=== PATIENT | female | born 2000 | race African-American/Black ===

== ENCOUNTER 2019-07-01 11:00 | Emergency (ER) | payer OTHER ==
[2019-07-01 11:14] VITALS: TEMP 97.8
[2019-07-01] MEDS ORDERED: KETOROLAC 30 MG/ML 1 ML VIAL IM STA (11:38)
--- NOTE | 2019-07-01 11:44 | ED ---
Chest Pain HPI - General Chief Complaint: Chest Pain Stated Complaint: Chest pain/tightness, abd pain Time Seen by Provider: 07/01/19 11:16 Source: patient, RN notes reviewed, old records reviewed Mode of arrival: ambulatory Limitations: no limitations - History of Present Illness Initial Comments: 18-year-old female presents today for concern for left-sided chest pain, worse with taking a deep breath or moving her arms and reproducible palpation. Symptoms started at 7 PM yesterday while she was at work. She denies any cough or significant congestion this time. Denies any previous cardiac history. Denies leg swelling, travel history, denies chance of . Patient denies any abdominal pain. Patient denies any recent fever, chills, shortness of breath, back pain, abdominal pain, nausea vomiting, numbness or tingling, dysuria or hematuria, constipation or diarrhea, headaches or visual changes, or any other current symptoms MD Complaint: chest pain - Related Data Previous Rx's Medication Instructions Recorded Ibuprofen [Motrin] 600 mg PO Q6HR PRN #20 tab 06/08/17 Ibuprofen [Motrin] 600 mg PO Q8HR PRN #20 tab 07/01/19 methylPREDNISolone Dose Pack 4 mg PO DIRECTED #21 package 07/01/19 [Medrol Dose Pack] Allergies Allergy/AdvReac Type Severity Reaction Status Date / Time No Known Allergies Allergy Verified 07/01/19 11:14 Review of Systems ROS Statement: Those systems with pertinent positive or pertinent negative responses have been documented in the HPI. ROS Other: All systems not noted in ROS Statement are negative. EKG Findings - EKG Comments: EKG Findings:: EKG performed at 11:49 AM shows sinus bradycardia, rightward axis. Borderline EKG. Ventricular rate 59 bpm. Verbal is 114 ms. QRS duration is 80 ms. QT QTc is 400/11/11/1995 most seconds. Past Medical History Past Medical History: No Reported History History of Any Multi-Drug Resistant Organisms: None Reported Past Surgical History: No Surgical Hx Reported Past Psychological History: No Psychological Hx Reported Smoking Status: Never smoker Past Alcohol Use History: None Reported Past Drug Use History: None Reported General Exam - General Exam Comments Initial Comments: Well-appearing 18-year-old female. No acute distress. Limitations: no limitations General appearance: alert, in no apparent distress Head exam: Present: atraumatic, normocephalic, normal inspection Eye exam: Present: normal appearance, PERRL, EOMI. Absent: scleral icterus, conjunctival injection, periorbital swelling ENT exam: Present: normal exam, mucous membranes moist Neck exam: Present: normal inspection. Absent: tenderness, meningismus, lymphadenopathy Respiratory exam: Present: normal lung sounds bilaterally, other (Is tender to palpation over the left chest wall.). Absent: respiratory distress, wheezes, rales, rhonchi, stridor Cardiovascular Exam: Present: regular rate, normal rhythm, normal heart sounds. Absent: systolic murmur, diastolic murmur, rubs, gallop, clicks GI/Abdominal exam: Present: soft, normal bowel sounds. Absent: distended, tenderness, guarding, rebound, rigid Back exam: Present: normal inspection Neurological exam: Present: alert, oriented X3, CN II-XII intact Psychiatric exam: Present: normal affect, normal mood Course Vital Signs 07/01/19 11:12 Temperature 97.8 F Pulse Rate 64 Respiratory 20 Rate Blood Pressure 118/74 O2 Sat by Pulse 99 Oximetry Chest Pain MDM - MDM 1-year-old female presents today for evaluation for concern for left sided chest pain, reproducible with palpation and movement and taking a breath. Lung sounds are clear. Vital signs are stable. EKG was reviewed and negative for any acute process. Chest x-ray is negative for any acute cardio pulmonary process. Patient is given IM Toradol for pain relief. On reevaluation she is resting comfortably bed and appears in distress. Discussed likely muscular skeletal origin or costochondritis. Discussed using intense image her medication for pain and close follow-up with her primary care doctor. All questions were answered. Disposition Clinical Impression: Chest wall pain Disposition: HOME SELF-CARE Condition: Good Instructions (If sedation given, give patient instructions): Costochondritis (ED) Additional Instructions: Please use medication as discussed. Please follow up with family doctor if symptoms have not improved over the next two days. Please return to the emergency room if your symptoms increase or worsen or for any other concerns. Prescriptions: methylPREDNISolone Dose Pack [Medrol Dose Pack] 4 mg PO DIRECTED #21 package Ibuprofen [Motrin] 600 mg PO Q8HR PRN #20 tab PRN Reason: Pain Is patient prescribed a controlled substance at d/c from ED?: No Referrals: Michael Benitez MD [Primary Care Provider] - 1-2 days Time of Disposition: 13:11
--- NOTE | 2019-07-01 12:27 | XR ---
EXAMINATION TYPE: XR chest 2V DATE OF EXAM: 07/01/2019 COMPARISON: NONE HISTORY: Chest pain TECHNIQUE: Frontal and lateral views of the chest are obtained. FINDINGS: There is no focal air space opacity. No evidence for pneumothorax. No pleural effusion. The cardiac silhouette size is within normal limits. The osseous structures are grossly intact. IMPRESSION: 1. No acute cardiopulmonary process.
[2019-07-01 13:21] VITALS: BP 111/71; PULSE 67; RESP 16
== END 2019-07-01 13:20 | disposition home or self-care (01) ==
LOC: EC 11:00
DX: R07.89 Other chest pain (principal)
CPT/HCPCS: 93005; 71046; 99285; 96372; J1885

== ENCOUNTER 2019-07-17 23:46 | Emergency (ER) | payer OTHER ==
[2019-07-18 00:05] VITALS: TEMP 98.7
[2019-07-18] MEDS ORDERED: SODIUM CHLORIDE 0.9% 1,000 ML IV STA (00:18)
[2019-07-18] MEDS ORDERED: DICYCLOMINE 10 MG/ML 2 ML AMP IM STA (00:18)
[2019-07-18] MEDS ORDERED: PANTOPRAZOLE 40 MG/10 ML VIAL IVP STA (00:18)
[2019-07-18] MEDS ORDERED: KETOROLAC 30 MG/ML 1 ML VIAL IVP STA (00:18)
--- NOTE | 2019-07-18 00:31 | ED ---
Abdominal Pain HPI - General Chief Complaint: Abdominal Pain Stated Complaint: Abd Pain/Headache Time Seen by Provider: 07/18/19 00:00 Source: patient Mode of arrival: ambulatory Limitations: no limitations - History of Present Illness Initial Comments: Patient is a 18-year-old female presenting to emergency Department with a chief complaint of abdominal pain. She states the abdominal pain has been going on and off for about 2 weeks and appears to be exacerbated after eating meals. She reports occasional nausea but denies any vomiting constipation diarrhea. She reports the pain is mostly located in the epigastric and right upper quadrant region. She does report shaking after on the onset of pain. She reports the pain is dull and about a 6. She denies any increased urgency or frequency or dysuria. Denies possibility for . Patient not considered for STDs. Patient denies hematuria, hematochezia or melena. Patient denies taking medication to alleviate the symptoms. - Related Data Previous Rx's Medication Instructions Recorded Ibuprofen [Motrin] 600 mg PO Q6HR PRN #20 tab 06/08/17 Ibuprofen [Motrin] 600 mg PO Q8HR PRN #20 tab 07/01/19 methylPREDNISolone Dose Pack 4 mg PO DIRECTED #21 package 07/01/19 [Medrol Dose Pack] Allergies Allergy/AdvReac Type Severity Reaction Status Date / Time No Known Allergies Allergy Verified 07/18/19 00:03 Review of Systems ROS Statement: Those systems with pertinent positive or pertinent negative responses have been documented in the HPI. ROS Other: All systems not noted in ROS Statement are negative. Past Medical History Past Medical History: No Reported History History of Any Multi-Drug Resistant Organisms: None Reported Past Surgical History: No Surgical Hx Reported Past Psychological History: No Psychological Hx Reported Smoking Status: Never smoker Past Alcohol Use History: None Reported Past Drug Use History: Marijuana General Exam Limitations: no limitations General appearance: alert, in no apparent distress Head exam: Present: atraumatic, normocephalic, normal inspection Eye exam: Present: normal appearance Pupils: Present: normal accommodation ENT exam: Present: normal exam, mucous membranes moist Neck exam: Present: normal inspection, full ROM Respiratory exam: Present: normal lung sounds bilaterally Cardiovascular Exam: Present: regular rate, normal rhythm, normal heart sounds GI/Abdominal exam: Present: soft, tenderness. Absent: distended Course Vital Signs 07/18/19 00:03 Temperature 98.7 F Pulse Rate 81 Respiratory 18 Rate Blood Pressure 124/90 O2 Sat by Pulse 99 Oximetry Medical Decision Making - Medical Decision Making Patient is a 18-year-old female presenting to the emergency room with a chief complaint of abdominal pain is about one for the past 2 weeks intermittently. Patient appears to be post prandial. Exam shows positive Jason sign with right upper quadrant epigastric tenderness palpation. Rest of physical examination is unremarkable. CBC CMP and UA are unremarkable. Right upper quadrant ultrasound shows no signs of gallstones or underlying gallbladder pathology. Patient given fluids, analgesia, antiemetics Protonix and Bentyl. I suspect the pain is related to her gallbladder because she appears to have pain postprandially especially after eating a fatty meal. Patient advised to follow-up with a general surgeon. Patient advised to avoid eating fatty foods. Patient vised alternate between Tylenol and ibuprofen for pain control. Strict return parameters were thoroughly discussed with patient was understanding and agreeable. Case discussed with physician. - Lab Data Result diagrams: 07/18/19 00:32 07/18/19 00:32 Lab Results 07/18/19 07/18/19 07/18/19 Range/Units 00:32 00:32 00:32 WBC 6.2 (4.0-11.0) k/uL RBC 4.31 (3.80-5.40) m/uL Hgb 12.8 (11.4-16.0) gm/dL Hct 37.4 (34.0-46.0) % MCV 86.6 (80.0-100.0) fL MCH 29.7 (25.0-35.0) pg MCHC 34.3 (31.0-37.0) g/dL RDW 12.6 (11.5-15.5) % Plt Count 213 (150-450) k/uL Neutrophils % 40 % Lymphocytes % 47 % Monocytes % 6 % Eosinophils % 2 % Basophils % 0 % Neutrophils # 2.5 (1.3-7.7) k/uL Lymphocytes # 2.9 (1.0-4.8) k/uL Monocytes # 0.4 (0-1.0) k/uL Eosinophils # 0.1 (0-0.7) k/uL Basophils # 0.0 (0-0.2) k/uL Sodium 140 (137-145) mmol/L Potassium 3.9 (3.5-5.1) mmol/L Chloride 107 (98-107) mmol/L Carbon Dioxide 26 (22-30) mmol/L Anion Gap 7 mmol/L BUN 14 (7-17) mg/dL Creatinine 0.74 (0.52-1.04) mg/dL Est GFR (CKD-EPI)AfAm >90 (>60 ml/min/1.73 sqM) Est GFR (CKD-EPI)NonAf >90 (>60 ml/min/1.73 sqM) Glucose 94 (74-99) mg/dL Calcium 9.6 (8.4-10.2) mg/dL Total Bilirubin 0.4 (0.2-1.3) mg/dL AST 24 (14-36) U/L ALT 18 (9-52) U/L Alkaline Phosphatase 64 (38-126) U/L Total Protein 7.4 (6.3-8.2) g/dL Albumin 4.1 (3.5-5.0) g/dL Amylase 111 H (30-110) U/L Lipase 132 (23-300) U/L Urine Color Light Yellow Urine Appearance Clear (Clear) Urine pH 6.5 (5.0-8.0) Ur Specific [place] 1.019 (1.001-1.035) Urine Protein Negative (Negative) Urine Glucose (UA) Negative (Negative) Urine Ketones Negative (Negative) Urine Blood Small H (Negative) Urine Nitrite Negative (Negative) Urine Bilirubin Negative (Negative) Urine Urobilinogen <2.0 (<2.0) mg/dL Ur Leukocyte Esterase Small H (Negative) Urine RBC 3 (0-5) /hpf Urine WBC 3 (0-5) /hpf Ur Squamous Epith Cells 2 (0-4) /hpf Urine Mucus Rare H (None) /hpf Disposition Clinical Impression: Right upper quadrant abdominal pain, Colicky pain Disposition: HOME SELF-CARE Condition: Stable Instructions (If sedation given, give patient instructions): Abdominal Pain (ED) Additional Instructions: Please follow with general surgery. Please return to emergency department if symptoms worsen. Alternate between Tylenol and ibuprofen pain control. Avoid eating fatty foods. Is patient prescribed a controlled substance at d/c from ED?: No Referrals: Michael Benitez MD [Primary Care Provider] - 1-2 days Time of Disposition: 02:09
[2019-07-18 00:45] LABS: Appearance,Urine Clear (Clear); Basophils % (A) 0 %; Bilirubin,Urine Negative (Negative); Blood,Urine Small (Negative); Color,Urine Light Yellow; Eosinophils # (A) 0.1 k/uL (0-0.7); Eosinophils % (A) 2 %; Glucose,Urine (UA) Negative (Negative); HCT 37.4 % (34.0-46.0); HGB 12.8 gm/dL (11.4-16.0); Ketones,Urine Negative (Negative); Leukocyte Esterase,Urine Small (Negative); Lymphocytes # (A) 2.9 k/uL (1.0-4.8); Lymphocytes % (A) 47 %; MCH 29.7 pg (25.0-35.0); MCHC 34.3 g/dL (31.0-37.0); MCV 86.6 fL (80.0-100.0); Mean Platelet Volume 6.9; Monocytes # (A) 0.4 k/uL (0-1.0); Monocytes % (A) 6 %; Mucus,Urine Rare /hpf; Neutrophils # (A) 2.5 k/uL (1.3-7.7); Neutrophils % (A) 40 %; Nitrite,Urine Negative (Negative); PH, Urine 6.5 (5.0-8.0); Platelet Count 213 k/uL (150-450); Protein,Urine Negative (Negative); RBC 4.31 m/uL (3.80-5.40); RBC,Urine 3 /hpf (0-5); RDW 12.6 % (11.5-15.5); Specific Gravity,Urine 1.019 (1.001-1.035); Squamous Epithelial Cell,Urine 2 /hpf (0-4); Urobilinogen,Urine <2.0 mg/dL (<2.0); WBC 6.2 k/uL (4.0-11.0); WBC,Urine 3 /hpf (0-5)
[2019-07-18 01:02] LABS: ALT 18 U/L (9-52); AST 24 U/L (14-36); African American GFR (CKD) >90 (>60 ml/min/1.73 sqM); Albumin 4.1 g/dL (3.5-5.0); Alkaline Phosphatase 64 U/L (38-126); Amylase 111 U/L (30-110); Anion Gap 7 mmol/L; Blood Urea Nitrogen 14 mg/dL (7-17); Calcium 9.6 mg/dL (8.4-10.2); Carbon Dioxide 26 mmol/L (22-30); Chloride 107 mmol/L (98-107); Glucose 94 mg/dL (74-99); Non-African American GFR(CKD) >90 (>60 ml/min/1.73 sqM); Potassium 3.9 mmol/L (3.5-5.1); Sodium 140 mmol/L (137-145); Total Bilirubin 0.4 mg/dL (0.2-1.3); Total Protein 7.4 g/dL (6.3-8.2)
--- NOTE | 2019-07-18 01:42 | US ---
EXAMINATION TYPE: US abdomen limited DATE OF EXAM: 07/18/2019 COMPARISON: NONE CLINICAL HISTORY: ruq postprandial pain x 2wk. RUQ postprandial pain x 2 weeks. EXAM MEASUREMENTS: Liver Length: 14.5 cm Gallbladder Wall: 0.26 cm CBD: 0.28 cm Right Kidney: 10.6 x 6.3 x 3.8 cm *Limited due to gas. Pancreas: Slightly limited evaluation of pancreatic head due to gas. Portions seen appear wnl. Liver: Appears to be wnl Gallbladder: Appears to be anechoic. Evidence for sonographic Jason's sign: No CBD: Appears to be wnl Right Kidney: No hydronephrosis or masses seen IMPRESSION: Normal right upper quadrant abdominal sonogram. No gallstones or dilated ducts. Normal li samson.
[2019-07-18 02:46] VITALS: BP 115/83; PULSE 64; RESP 19
== END 2019-07-18 02:46 | disposition home or self-care (01) ==
LOC: EC 23:46
DX: R10.11 Right upper quadrant pain (principal); R10.84 Generalized abdominal pain; R51 Headache; R11.0 Nausea; R10.811 Right upper quadrant abdominal tenderness; R10.816 Epigastric abdominal tenderness
CPT/HCPCS: 36415; 80053; 82150; 83690; 85025; 81001; 76705; 99284; 96374; 96375; 96361; 96372; J0500; J1885; C9113

== ENCOUNTER 2019-09-04 12:20 | Emergency (ER) | payer OTHER ==
[2019-09-04 12:24] VITALS: BP 138/75; PULSE 105; TEMP 99.2
--- NOTE | 2019-09-04 13:06 | XR ---
EXAMINATION TYPE: XR chest 2V DATE OF EXAM ORDERED: 09/04/2019 HISTORY: fever. REFERENCE: Previous study dated 07/01/2019. FINDINGS: The lungs are clear. Pleural spaces are clear. Heart size is normal. IMPRESSION: NORMAL CHEST.
[2019-09-04 13:07] VITALS: RESP 16
--- NOTE | 2019-09-04 13:51 | ED ---
Fever HPI - General Chief Complaint: Fever Stated Complaint: Cough Time Seen by Provider: 09/04/19 12:31 Source: patient, RN notes reviewed Mode of arrival: ambulatory Limitations: no limitations - History of Present Illness Initial Comments: 18-year-old female presents emergency Department chief complaint cough congestion for the last 5-6 days. Patient states last couple days she's felt miserable states that she is very achy, fever. Patient has been taking Tylenol Motrin. No major past medical history no sick contacts denies any ear pain, sore throat. - Related Data Previous Rx's Medication Instructions Recorded Ibuprofen [Motrin] 600 mg PO Q6HR PRN #20 tab 06/08/17 Ibuprofen [Motrin] 600 mg PO Q8HR PRN #20 tab 07/01/19 methylPREDNISolone Dose Pack 4 mg PO DIRECTED #21 package 07/01/19 [Medrol Dose Pack] Allergies Allergy/AdvReac Type Severity Reaction Status Date / Time No Known Allergies Allergy Verified 09/04/19 12:24 Review of Systems ROS Statement: Those systems with pertinent positive or pertinent negative responses have been documented in the HPI. ROS Other: All systems not noted in ROS Statement are negative. Past Medical History Past Medical History: No Reported History History of Any Multi-Drug Resistant Organisms: None Reported Past Surgical History: No Surgical Hx Reported Past Psychological History: No Psychological Hx Reported Smoking Status: Never smoker Past Alcohol Use History: None Reported Past Drug Use History: Marijuana General Exam Limitations: no limitations General appearance: alert, in no apparent distress Head exam: Present: atraumatic, normocephalic, normal inspection Eye exam: Present: normal appearance, PERRL, EOMI. Absent: scleral icterus, conjunctival injection, periorbital swelling ENT exam: Present: normal exam, normal oropharynx, mucous membranes moist, TM's normal bilaterally Neck exam: Present: normal inspection, full ROM. Absent: tenderness, meningismus, lymphadenopathy Respiratory exam: Present: normal lung sounds bilaterally. Absent: respiratory distress, wheezes, rales, rhonchi, stridor Cardiovascular Exam: Present: regular rate, normal rhythm, normal heart sounds. Absent: systolic murmur, diastolic murmur, rubs, gallop, clicks GI/Abdominal exam: Present: soft, normal bowel sounds. Absent: distended, tenderness, guarding, rebound, rigid Neurological exam: Present: alert Course Vital Signs 09/04/19 09/04/19 12:21 13:05 Temperature 99.2 F Pulse Rate 105 H Respiratory 18 16 Rate Blood Pressure 138/75 O2 Sat by Pulse 97 Oximetry Procedures - [place] Protocol (Time Out) Nurse: Ginger Rose Medical Decision Making - Medical Decision Making Chest x-rays unremarkable. Patient's positive for influenza B patient symptoms have been present for greater than 48 hours. Patient be discharged in stable condition. - Lab Data Lab Results 09/04/19 Range/Units 12:52 Influenza Type A RNA Not Detected (Not Detectd) Influenza Type B (PCR) Detected H (Not Detectd) Disposition Clinical Impression: Influenza Disposition: HOME SELF-CARE Condition: Stable Instructions (If sedation given, give patient instructions): Influenza (ED) Additional Instructions: Please return to the Emergency Department if symptoms worsen or any other concerns. Is patient prescribed a controlled substance at d/c from ED?: No Referrals: Michael Benitez MD [Primary Care Provider] - 1-2 days Time of Disposition: 13:50
== END 2019-09-04 13:56 | disposition home or self-care (01) ==
LOC: EC 12:20
DX: J10.1 Influenza due to other identified influenza virus with other respiratory manifestations (principal)
CPT/HCPCS: 71046; 87502; 99283

== ENCOUNTER 2020-03-16 15:34 | Emergency (ER) | payer OTHER ==
[2020-03-16 15:41] VITALS: BP 120/57; PULSE 70; RESP 16; TEMP 98.8
--- NOTE | 2020-03-16 16:30 | XR ---
EXAMINATION TYPE: XR chest 2V DATE OF EXAM: 03/16/2020 COMPARISON: Chest x-ray September 04, 2019. HISTORY: Cough. TECHNIQUE: Frontal and lateral views of the chest are obtained. FINDINGS: There is no focal air space opacity, pleural effusion, or pneumothorax seen. The cardiac silhouette size is within normal limits. The osseous structures are intact. IMPRESSION: No suspicious new acute infiltrate.
--- NOTE | 2020-03-16 16:52 | ED ---
URI HPI - General Chief Complaint: Upper Respiratory Infection Stated Complaint: Fever, Cough, Abcess in mouth Time Seen by Provider: 03/16/20 15:40 Source: patient Mode of arrival: ambulatory Limitations: no limitations - History of Present Illness Initial Comments: Patient is a 19-year-old previously healthy female who presents to the emergency department with reported cough and dental pain. Patient states that the cough has been going on for the past week. Her children were sick and she believes she contracted it from them. He states she had fevers for 2 days however she has not had a fever in the past week. She has had a nonproductive cough which is bronchospastic in nature. Denies any underlying lung conditions include asthma. She has not taken any antipyretics. No [id number] medications for her cough. She denies exposure to anyone with Covid positive results. She denies any chest pain. No shortness of breath. Denies any abdominal pain, nausea or vomiting. No concern for . Denies ripping or tearing sensation to her back. Patient also reports to right sided jaw pain. States it's been going on for the past one day. She is concern for dental abscess. Does not seek regular dental care. Denies a sensation that her airway is closing off. No tongue swelling. No drooling. No hoarseness. No other panda viating, precipitating or modifying factors - Related Data Previous Rx's Medication Instructions Recorded Ibuprofen [Motrin] 600 mg PO Q6HR PRN #20 tab 06/08/17 Ibuprofen [Motrin] 600 mg PO Q8HR PRN #20 tab 07/01/19 methylPREDNISolone Dose Pack 4 mg PO DIRECTED #21 package 07/01/19 [Medrol Dose Pack] Albuterol Sulfate [Proair Hfa] 1 - 2 puff INHALATION Q6HR PRN #1 03/16/20 inhaler Amoxicillin/Potassium Clav 1 tab PO Q12HR #20 tab 03/16/20 [Augmentin 875-125 Tablet] Allergies Allergy/AdvReac Type Severity Reaction Status Date / Time No Known Allergies Allergy Verified 09/04/19 12:24 Review of Systems ROS Statement: Those systems with pertinent positive or pertinent negative responses have been documented in the HPI. ROS Other: All systems not noted in ROS Statement are negative. Past Medical History Past Medical History: No Reported History History of Any Multi-Drug Resistant Organisms: None Reported Past Surgical History: No Surgical Hx Reported Past Psychological History: No Psychological Hx Reported Smoking Status: Current every day smoker Past Alcohol Use History: None Reported Past Drug Use History: Marijuana General Exam Limitations: no limitations General appearance: alert, in no apparent distress Head exam: Present: atraumatic, normocephalic, normal inspection Eye exam: Present: normal appearance, PERRL, EOMI. Absent: scleral icterus, conjunctival injection, periorbital swelling ENT exam: Present: normal exam, mucous membranes moist, other (multiple dental caries. No signs of dental abscess. Tooth #32 is partially impacted underneath the gum) Neck exam: Present: normal inspection. Absent: tenderness, meningismus, lymphadenopathy Respiratory exam: Present: normal lung sounds bilaterally. Absent: respiratory distress, wheezes, rales, rhonchi, stridor Cardiovascular Exam: Present: regular rate, normal rhythm, normal heart sounds. Absent: systolic murmur, diastolic murmur, rubs, gallop, clicks GI/Abdominal exam: Present: soft, normal bowel sounds. Absent: distended, tenderness, guarding, rebound, rigid Extremities exam: Present: normal inspection, full ROM, normal capillary refill. Absent: tenderness, pedal edema, joint swelling, calf tenderness Back exam: Present: normal inspection Neurological exam: Present: alert, oriented X3, CN II-XII intact Psychiatric exam: Present: normal affect, normal mood Skin exam: Present: warm, dry, intact, normal color. Absent: rash Course Vital Signs 03/16/20 15:38 Temperature 98.8 F Pulse Rate 70 Respiratory 16 Rate Blood Pressure 120/57 O2 Sat by Pulse 99 Oximetry Medical Decision Making - Medical Decision Making On arrival patient is placed into room 25. At thorough history and physical exam is performed. Patient has no signs of respiratory distress. I did recommend Covid swab and a chest x-ray for which the patient did agree to. Chest x-ray demonstrates no acute process. Patient is on for Covid. We did instruct that she must quarantine herself at this time until her symptoms resolve. We will call her with a positive Covid results. Take Motrin and Tylenol alternating for pain. Patient will be prescribed Augmentin for her impacted right wisdom tooth. Patient has no signs of dental abscess. No signs of Ignacio angina. Patient is to take medications as directed and follow-up with her dentist for extraction of the tooth. Patient will also be prescribed an inhaler for her bronchospastic cough. The patient has any new or worsening symptoms she should return to the emergency room. Follow-up with her primary care doctor within 2-4 days. Patient was in agreement with this plan and was discharged home in stable condition - Lab Data Lab Results 03/16/20 Range/Units 16:22 Coronavirus (PCR) Not Detected (Not Detected) Disposition Clinical Impression: Cough, Dentalgia Disposition: HOME SELF-CARE Condition: Stable Instructions (If sedation given, give patient instructions): Upper Respiratory Infection (ED) Additional Instructions: We will call you if your Covid tests are positive. Please continue to quarantine yourself until your symptoms improve and if your test is negative. Use the inhaler every 4 hours. Take antibiotic medication as directed and return to the emergency room for any new or worsening symptoms. You must follow-up with your dentist have your tooth pulled and follow-up with your primary care doctor in regards to your cough. Prescriptions: Amoxicillin/Potassium Clav [Augmentin 875-125 Tablet] 1 tab PO Q12HR #20 tab Albuterol Sulfate [Proair Hfa] 1 - 2 puff INHALATION Q6HR PRN #1 inhaler PRN Reason: Cough Is patient prescribed a controlled substance at d/c from ED?: No Referrals: Michael Benitez MD [Primary Care Provider] - 1-2 days Time of Disposition: 16:52
== END 2020-03-16 17:09 | disposition home or self-care (01) ==
LOC: EC 15:34
DX: R05 Cough (principal); K08.89 Other specified disorders of teeth and supporting structures; R50.9 Fever, unspecified; F17.200 Nicotine dependence, unspecified, uncomplicated; Z20.828 Contact with and (suspected) exposure to other viral communicable diseases
CPT/HCPCS: 99283; 71046; U0003

== ENCOUNTER 2021-12-21 00:26 | Emergency (ER) | payer OTHER ==
[2021-12-21 00:48] VITALS: TEMP 97.7
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
--- NOTE | 2021-12-21 01:09 | XR ---
EXAMINATION TYPE: XR hand complete RT DATE OF EXAM: 12/21/2021 COMPARISON: NONE HISTORY: Pain TECHNIQUE: 3 views FINDINGS: Metacarpals are intact. I see no fracture nor dislocation. Joint spaces are normal. IMPRESSION: Negative right hand exam.
[2021-12-21 01:20] VITALS: BP 114/62; PULSE 70; RESP 16
== END 2021-12-21 01:22 | disposition home or self-care (01) ==
LOC: EC 00:26
DX: S60.221A Contusion of right hand, initial encounter (principal); F17.200 Nicotine dependence, unspecified, uncomplicated; W50.0XXA Accidental hit or strike by another person, initial encounter
CPT/HCPCS: 99283